=== PATIENT | male | born 1985 | race Caucasian/White ===

== ENCOUNTER → 2017-05-20 | Outpatient (CLI) | payer OTHER ==
[~2017-05-20] MED LIST: GADOBUTROL 10 ML VIAL IVP ONE
== END ==
LOC: FIMAGING 08:06
PROVIDERS: ATTEND Orthopaedic Surgery
DX: M89.9 Disorder of bone, unspecified (principal)
CPT/HCPCS: A9585

== ENCOUNTER 2018-08-19 08:14 | Emergency (ER) | payer OTHER ==
[2018-08-19] MEDS ORDERED: HYDROmorphONE/DILAUDID 2 MG/ML INJ IVP ONE (09:01)
[2018-08-19] MEDS ORDERED: NS 1,000 ML IV ONE (09:02)
[2018-08-19 09:39] LABS: PLATELET COUNT 170 10^3/uL (150-400)
[2018-08-19] MEDS ORDERED: IOPAMIDOL (ISOVUE-300) 100 ML BTL ONE (09:52)
[2018-08-19] MEDS ORDERED: MAG HYDROX/AL HYDROX/SIMETH 30 ML UDCUP PO ONE (10:30)
[2018-08-19] MEDS ORDERED: LIDOCAINE 2% VISCOUS 15 ML UDCUP PO ONE (10:30)
[2018-08-19] MEDS ORDERED: ONDANSETRON 4 MG/2 ML VIAL IVP ONE (10:30)
[2018-08-19] MEDS ORDERED: HYOSCYAMINE SULFATE 0.125 MG TAB PO ONE (10:30)
--- NOTE | 2018-08-19 10:34 | EDPHY ---
H & P Time Seen by Provider: 08/19/18 08:32 HPI/ROS: CHIEF COMPLAINT: Abdominal pain HISTORY OF PRESENT ILLNESS: 32-year-old male presents emergency department with several hours of severe epigastric pain. Patient states the pain started several hours ago. Discomfort in the epigastric region. Some nausea. Feels burning. No fevers or chills. No vomiting. No diarrhea. Patient does have a history of gastritis diagnosed about a year ago. Reports after a changed his diet, he has not had issues with it since then. Denies urinary complaints. REVIEW OF SYSTEMS: A comprehensive 10 system review of systems was reviewed and is otherwise negative aside from elements mentioned in the history of present illness and medical decision making. PAST MEDICAL HISTORY: Gastritis. SOCIAL HISTORY: Occasional smoker. Uses marijuana daily. VITAL SIGNS Reviewed by me. GENERAL: Well-developed, well-nourished, uncomfortable appearing. Reports if he lays back, the pain is significantly worse. Holding his abdomen. HEENT: Atraumatic. Eyes: No icterus, no injection. Mouth: moist mucous membranes. No erythema or lesions. Neck: supple with no adenopathy. LUNGS: Clear to auscultation bilaterally, no wheezes, rhonchi or rales. CARDIAC: Regular rate and rhythm, no rubs, murmurs or gallops. ABDOMEN: Soft, significant epigastric tenderness. No right upper quadrant tenderness. No distension. No guarding or rebound. BACK: No CVA tenderness. EXTREMITIES: No trauma. No edema. Range of motion is normal throughout. NEURO: Alert and oriented, grossly nonfocal. SKIN: Warm and dry, no rash. PSYCHIATRIC: Normal mentation, no agitation. Smoking Status: Current some day smoker Constitutional: Initial Vital Signs Temperature (C) 36.4 C 08/19/18 08:17 Heart Rate 60 08/19/18 08:17 Respiratory Rate 16 08/19/18 08:17 Blood Pressure 114/72 08/19/18 08:17 O2 Sat (%) 100 08/19/18 08:17 O2 Delivery Mode Room Air Allergies/Adverse Reactions: No Known Allergies Allergy (Unverified 08/19/18 08:16) Home Medications: Medication Instructions Recorded Adderall 10 MG (*) 08/19/18 Cyclobenzaprine 08/19/18 Hydrocodone/APAP 5/325 [[place] 1 tab PO Q6H PRN #10 tab 08/19/18 5/325 (RX)] Medical Decision Making - Diagnostics Imaging Results: Impression: Query low-grade gastroenteritis. There is no evidence of a mechanical obstruction, and the appendix appears normal. Findings were discussed with Kp Calhoun PA-C, who will convey the information to Abigail Maxwell MD at 10:24, on 08/19/2018. Dictated By: Remy Alcantara MD ED Course/Re-evaluation: 32-year-old male presenting with significant epigastric discomfort. Patient does report a history of gastritis self feels that this discomfort is different. He has not currently been on any PPIs. IV placed in the patient received Dilaudid as well as a GI cocktail. Laboratory evaluation unremarkable. CT scan abdomen pelvis demonstrates a normal appendix, and some antral wall thickening along with fluid-filled loops of bowel suggestive of gastritis versus gastroenteritis. Patient has not had diarrhea. Suspect this may be more of a acute gastritis picture. Discussed the CT findings and lab findings with the patient. Patient's much improved following the GI cocktail. IV Protonix was administered. Patient feels comfortable being discharged with instructions regarding a proton pump inhibitor, diet for gastritis, and close follow-up. Differential Diagnosis: Differential diagnosis for the patient's upper abdominal pain was considered including but not limited to cholecystitis, gastritis, peptic ulcers disease, and pancreatitis. - Data Points Laboratory Results: Laboratory Results 08/19/18 08:44 08/19/18 08:44 Medications Given: Discontinued Medications Al Hydroxide/Mg Hydroxide (Maalox Susp) 30 ml PO ONCE ONE Stop: 08/19/18 10:31 Last Admin: 08/19/18 10:55 Dose: 30 ml Hydromorphone HCl (Dilaudid) 1 mg IVP EDNOW ONE Stop: 08/19/18 09:02 Last Admin: 08/19/18 09:07 Dose: 1 mg Hyoscyamine Sulfate (Levsin, Hyomax-Sl) 0.25 mg PO ONCE ONE Stop: 08/19/18 10:31 Last Admin: 08/19/18 10:55 Dose: 0.25 mg Sodium Chloride (Ns) 1,000 mls @ 0 mls/hr IV ONCE ONE; Wide Open PRN Reason: Protocol Stop: 08/19/18 09:03 Last Admin: 08/19/18 09:07 Dose: 1,000 mls Lidocaine (Lidocaine 2% Viscous) 15 ml PO ONCE ONE Stop: 08/19/18 10:31 Last Admin: 08/19/18 10:55 Dose: 15 ml Ondansetron HCl (Zofran) 4 mg IVP EDNOW ONE Stop: 08/19/18 10:31 Last Admin: 08/19/18 10:55 Dose: 4 mg Pantoprazole Sodium (Protonix) 40 mg IVP EDNOW ONE Stop: 08/19/18 10:46 Last Admin: 08/19/18 10:55 Dose: 40 mg Departure - Departure Disposition: Home, Routine, Self-Care Clinical Impression: Gastritis and duodenitis Condition: Good Instructions: Gastritis (ED), Diet for Stomach Ulcers and Gastritis (ED) Additional Instructions: I recommend you begin the following treatments: Prilosec (omeprazole) which is available [id number]. Please take this as directed every day for the next 2 weeks. Please begin taking a H2 annabel such as ranitidine or famotidine, these are also available [id number]. Take this at night. Please consider the use of Maalox or Mylanta as needed for abdominal discomfort. You may take this 30 min before eating. Please follow up with contract accountant for repeat endoscopy. Avoid alcohol, spicy foods. Referrals: DAMARIS MONTANA [Primary Care Provider] - As per Instructions Sourav Rodriguez MD [Medical Doctor] - As per Instructions (Follow-up in the next 1-2 weeks.) Prescriptions: Hydrocodone/APAP 5/325 [[place] 5/325 (RX)] 1 tab PO Q6H PRN #10 tab PRN Reason: Pain
[2018-08-19] MEDS ORDERED: PANTOPRAZOLE SODIUM 40 MG VIAL IVP ONE (10:45)
[2018-08-19 11:01] VITALS: BP 107/67
== END 2018-08-19 11:05 | disposition home or self-care (01) ==
DX: R10.13 Epigastric pain (principal); K29.70 Gastritis, unspecified, without bleeding; E86.9 Volume depletion, unspecified
CPT/HCPCS: 96374; J1170; J2405; Q9967